=== PATIENT | female | born 1960 | race Caucasian/White ===

== ENCOUNTER → 2020-08-04 | Outpatient (REF) | payer BC | LOC: M LABDRAWC 15:43 | PROVIDERS: ATTEND Nurse Practitioner Family | DX: C91.10 Chronic lymphocytic leukemia of B-cell type not having achieved remission (principal) ==

== ENCOUNTER → 2020-08-04 | Outpatient (REF) | payer BC ==
[2020-08-04 16:27] LABS: HEMATOCRIT 43.1 % (36.0-47.0); HEMOGLOBIN 12.9 g/dl (12.0-15.5); MEAN CORPUSCULAR HEMOGLOBIN 27.8 pg (27.0-33.0); MEAN CORPUSCULAR HGB CONC 29.9 g/dl (32.0-36.5); MEAN CORPUSCULAR VOLUME 92.9 fl (80.0-96.0); PLATELET COUNT, AUTOMATED 140 10^3/uL (150-450); RED BLOOD COUNT 4.64 10^6/uL (4.00-5.40)
[2020-08-04 16:47] LABS: NEUTROPHILS 10 % (28-66); WHITE BLOOD COUNT 94.9 10^3/uL (4.0-10.0)
[2020-08-04 16:48] LABS: ATYPICAL LYMPH 8 % (0-5); HYPOCHROMASIA 1+; LYMPHOCYTES 82 % (16-44); PLATELET ESTIMATE NORMAL (NORMAL); SMUDGE CELLS 2+
[2020-08-04 17:03] LABS: ALBUMIN 4.2 GM/DL (3.2-5.2); ALT/SGPT 50 U/L (12-78); BILIRUBIN,TOTAL 0.8 MG/DL (0.2-1.0); BLOOD UREA NITROGEN 19 MG/DL (7-18); CARBON DIOXIDE LEVEL 29 MEQ/L (21-32); CHLORIDE LEVEL 107 MEQ/L (98-107); CREATININE FOR GFR 0.79 MG/DL (0.55-1.30); FREE T4 1.33 NG/DL (0.76-1.46); GLOMERULAR FILTRATION RATE > 60.0 (>45); GLUCOSE, FASTING 92 MG/DL (70-100); SODIUM LEVEL 141 MEQ/L (136-145); TOTAL PROTEIN 7.1 GM/DL (6.4-8.2)
== END ==
LOC: M SFHCCLAY 11:50
PROVIDERS: ATTEND Nurse Practitioner Family
DX: C91.10 Chronic lymphocytic leukemia of B-cell type not having achieved remission (principal)

== ENCOUNTER → 2020-08-04 | Outpatient (CLI) | payer BC ==
--- NOTE | 2020-08-05 03:15 | REP ---
INDICATION: M25.512, ACUTE PAIN OF LEFT SHOULDER COMPARISON: None. TECHNIQUE: Internal rotation, external rotation, and Y view. FINDINGS: No acute fracture or dislocation. Mild cortical irregularity at the acromioclavicular joint. Glenohumeral joint appears intact and normal. Subacromial space is normal. No periarticular calcifications or loose bodies are identified. Surrounding soft tissues are unremarkable. IMPRESSION: Essentially normal age-appropriate examination. <Electronically signed by Pedro Laird > 08/05/20 [id number]
--- NOTE | 2020-08-05 03:17 | REP ---
INDICATION: M25.521, RIGHT ELBOW PAIN COMPARISON: None. TECHNIQUE: AP, lateral, bilateral oblique views of the right elbow. FINDINGS: No acute fracture or dislocation is appreciated. Joint spaces and surrounding soft tissues appear normal. Lateral view demonstrates normal positioning to the anterior and posterior fat pads without evidence for effusion/hemarthrosis. No subcutaneous emphysema or foreign body identified. IMPRESSION: Normal elbow radiographs. <Electronically signed by Pedro Laird > 08/05/20 [id number]
== END ==
LOC: M CLY 12:03
PROVIDERS: ATTEND Nurse Practitioner Family
DX: M25.512 Pain in left shoulder (principal); M25.521 Pain in right elbow

== ENCOUNTER → 2020-12-22 | Outpatient (CLI) | payer BC ==
--- NOTE | 2020-12-22 09:30 | REP ---
INDICATION: LT SHOULDER PAIN. COMPARISON: Radiographs 08/04/2020. TECHNIQUE: Coronal oblique T1, T2 fat sat, sagittal oblique T2 fat sat, axial T2 fat sat, gradient echo. FINDINGS: Rotator cuff: There is mild diffuse supraspinatus tendinopathy. There is a full-thickness partial tear of the anterior distal supraspinatus tendon. Acromioclavicular joint: There are mild hypertrophic degenerative changes of the acromioclavicular joint with mild downward sloping of the acromion. Acromion: Type 2 Biceps Tendon: In bicipital groove, with mild surrounding fluid. Hill Sach's deformity: None. Deltoid muscle: No abnormal signal. Biceps labral complex: There is fraying of the biceps labral complex. Labrum: Posterior labrum is diffusely truncated and likely torn. Cartilage: There is diffuse thinning of the glenoid cartilage posteriorly. Bone marrow: There is a tiny subcortical cyst in the superolateral humeral head. There is no bone marrow edema or occult fracture. Joint fluid: No effusion. There is small amount of fluid in the subacromial/subdeltoid bursae. IMPRESSION: Full-thickness partial tear anterior distal supraspinatus tendon. Mild hypertrophic degenerative changes acromioclavicular joint with mild downward sloping of the acromion. There is fraying of the biceps labral complex. The posterior labrum is diffusely truncated and likely torn, with adjacent diffuse thinning of the posterior glenoid cartilage is well. Small amount of fluid in the subacromial/subdeltoid bursae. <Electronically signed by Percy Reyes > 12/22/20 [id number]
== END ==
LOC: M RAD 07:39
PROVIDERS: ATTEND Nurse Practitioner Family
DX: S46.012A Strain of muscle(s) and tendon(s) of the rotator cuff of left shoulder, initial encounter (principal); X58.XXXA Exposure to other specified factors, initial encounter; Y92.9 Unspecified place or not applicable; Y93.9 Activity, unspecified; Y99.9 Unspecified external cause status; M19.011 Primary osteoarthritis, right shoulder

== ENCOUNTER → 2021-04-21 | Outpatient (REF) | payer BC | LOC: M SFHCCLAY 14:05 | PROVIDERS: ATTEND Nurse Practitioner Family | DX: R19.7 Diarrhea, unspecified (principal); R09.81 Nasal congestion ==

== ENCOUNTER → 2023-07-26 | Outpatient (CLI) | payer BC | LOC: M CLY 14:38 | PROVIDERS: ATTEND Physician Assistant | DX: M51.36 Other intervertebral disc degeneration, lumbar region (principal); M51.37 Other intervertebral disc degeneration, lumbosacral region; M25.552 Pain in left hip ==

== ENCOUNTER → 2023-08-18 | Outpatient (CLI) | payer BC ==
[~2023-08-18] MED LIST: PROHANCE 279.3MG/ML 15ML VIAL As Ordered ONE
== END ==
LOC: M RAD 14:47
PROVIDERS: ATTEND Physician Assistant
DX: M51.06 Intervertebral disc disorders with myelopathy, lumbar region (principal); M48.061 Spinal stenosis, lumbar region without neurogenic claudication; M54.50 Low back pain, unspecified
CPT/HCPCS: 72158; A9576

== ENCOUNTER → 2023-10-18 | Outpatient (CLI) | payer BC | LOC: M WHC 13:48 | PROVIDERS: ATTEND Nurse Practitioner Family | DX: Z12.31 Encounter for screening mammogram for malignant neoplasm of breast (principal); N95.0 Postmenopausal bleeding ==

== ENCOUNTER → 2024-01-12 | Outpatient (CLI) | payer BC | LOC: M RAD 10:34 | PROVIDERS: ATTEND Nurse Practitioner | DX: M43.16 Spondylolisthesis, lumbar region (principal) ==

== ENCOUNTER 2024-08-11 05:02 | Emergency (ER) | payer BC, OTHER ==
[~2024-08-11] VITALS: Ht 160 cm; Wt 71.8 kg
[2024-08-11] MEDS ORDERED: OXYC-517 (05:23)
[2024-08-11] MEDS ORDERED: CYCL5TAB4 (05:23)
[2024-08-11] MEDS ORDERED: IMBR1CAP PO (05:23)
[2024-08-11] MEDS ORDERED: ALPR1TAB3 (05:23)
[2024-08-11] MEDS: diphenhydrAMINE 50MG/ML VIAL IV STA (05:29)
[2024-08-11] MEDS: FAMOTIDINE 20MG/2ML VIAL IVP ONE (05:29)
[2024-08-11] MEDS ORDERED: ISOVUE-370 76% 100ML VIAL As Ordered ONE (05:53)
[2024-08-11] MEDS: HYDROMORPHONE HCL 0.5 MG/ 0.5 ML SYRINGE IV PRN (06:32)
[2024-08-11 07:15] VITALS: TEMP 98.6
[2024-08-11] MEDS ORDERED: DOXY100T PO (10:49)
[2024-08-11] MEDS ORDERED: MEDR4PAK PO (10:49)
[2024-08-11] MEDS ORDERED: NAPR-837 PO (10:49)
[2024-08-11] MEDS: methylPREDNISolone 125MG 2ML VIAL IV ONE (11:04)
[2024-08-11 11:11] VITALS: BP 103/55; O2SAT 93
== END 2024-08-11 11:16 | disposition home or self-care (01) ==
LOC: M ED 05:02
DX: R09.1 Pleurisy (principal); C91.10 Chronic lymphocytic leukemia of B-cell type not having achieved remission; E78.5 Hyperlipidemia, unspecified; F10.10 Alcohol abuse, uncomplicated; Z91.041 Radiographic dye allergy status; Z88.2 Allergy status to sulfonamides; Z88.1 Allergy status to other antibiotic agents; Z88.5 Allergy status to narcotic agent; Z79.899 Other long term (current) drug therapy; Z79.1 Long term (current) use of non-steroidal anti-inflammatories (NSAID)
CPT/HCPCS: 71275; 74177; 93005; 96374; 96375; 99284; J1171; J1200; J2919; Q9967; S0028

== ENCOUNTER → 2024-08-26 | Outpatient (REF) | payer OTHER ==
[~2024-08-26] MED LIST changes: +ALPR1TAB3; +CYCL5TAB4; +DOXY100T PO; +IMBR1CAP PO; +MEDR4PAK PO; +NAPR-837 PO; +OXYC-517; -PROHANCE 279.3MG/ML 15ML VIAL As Ordered ONE
== END ==
LOC: M SFHCCLAY 10:05
PROVIDERS: ATTEND Nurse Practitioner Family
DX: I30.9 Acute pericarditis, unspecified (principal)

== ENCOUNTER → 2024-10-03 | Outpatient (REF) | payer OTHER ==
[2024-10-03 18:02] LABS: BASO % 0.2 % (0.0-1.0); EOS # 0.2 10^3/uL (0.0-0.5); EOS % 1.5 % (0.0-3.0); HEMATOCRIT 38.1 % (36.0-47.0); HEMOGLOBIN 12.4 g/dl (12.0-15.5); LYMPH # 3.8 10^3/uL (1.5-5.0); LYMPH % 38.8 % (24.0-44.0); MEAN CORPUSCULAR HEMOGLOBIN 31.2 pg (27.0-33.0); MEAN CORPUSCULAR HGB CONC 32.5 g/dl (32.0-36.5); MEAN CORPUSCULAR VOLUME 95.7 fl (80.0-96.0); MONO # 0.6 10^3/uL (0.0-0.8); MONO % 5.7 % (2.0-8.0); NEUTROPHILS # 5.2 10^3/uL (1.5-8.5); NEUTROPHILS % 53.3 % (36.0-66.0); PLATELET COUNT, AUTOMATED 201 10^3/uL (150-450); RED BLOOD COUNT 3.98 10^6/uL (4.00-5.40); WHITE BLOOD COUNT 9.8 10^3/uL (4.0-10.0)
[2024-10-03 18:38] LABS: C REACTIVE PROTEIN QUANTITATIV 2.73 MG/DL (<1.0)
[2024-10-03 18:39] LABS: LDH LACTATE DEHYDROGENASE 195 U/L (120-246)
[2024-10-03 18:40] LABS: ALBUMIN 3.4 G/DL (3.2-5.2); ALKALINE PHOSPHATASE 174 U/L (35-104); ALT/SGPT 51 U/L (7.0-40); AST/SGOT 35 U/L (<34); BILIRUBIN,TOTAL 0.3 MG/DL (0.3-1.2); BLOOD UREA NITROGEN 20 MG/DL (9-23); CALCIUM LEVEL 9.4 MG/DL (8.3-10.6); CARBON DIOXIDE LEVEL 31 MMOL/L (20-31); CHLORIDE LEVEL 106 MMOL/L (98-107); CREATININE FOR GFR 0.81 MG/DL (0.55-1.30); GLOMERULAR FILTRATION RATE > 60.0 (>45); GLUCOSE, FASTING 118 MG/DL (74-106); POTASSIUM SERUM 4.1 MMOL/L (3.5-5.1); SODIUM LEVEL 145 MMOL/L (136-145); TOTAL PROTEIN 6.4 G/DL (5.7-8.2)
== END ==
LOC: M LABDRAWC 16:53
PROVIDERS: ATTEND Internal Medicine
DX: I31.8 Other specified diseases of pericardium (principal)

== ENCOUNTER → 2024-12-02 | Outpatient (CLI) | payer OTHER | LOC: M WHC 09:34 | PROVIDERS: ATTEND Nurse Practitioner Family | DX: Z12.31 Encounter for screening mammogram for malignant neoplasm of breast (principal) ==

== ENCOUNTER → 2025-08-18 | Outpatient (CLI) | payer MEDICARE ==
[~2025-08-18] MED LIST changes: +ELIQ5TAB PO; +FLEC50HA PO; +METO1TAB32 PO; +ZANU80CA PO
== END ==
LOC: M CLY 11:14
PROVIDERS: ATTEND Nurse Practitioner Family
DX: M25.531 Pain in right wrist (principal); M79.641 Pain in right hand